=== PATIENT | female | born 1950 | race Caucasian/White ===

== ENCOUNTER → 2016-07-29 | Outpatient (CLI) | payer MEDICARE, BC ==
[2016-07-29 11:06] LABS: Blood Urea Nitrogen 16 mg/dL (7-17); Non-African American GFR(MDRD) >60 (>60 ml/min/1.73 sqM)
--- NOTE | 2016-07-29 17:23 | CT ---
CT urogram with and without contrast HISTORY: Intermittent gross hematuria x2 months Helical acquisition precontrast as well as postcontrast performed through the abdomen following 100 c c Omni 300 IV. No comparisons. Three-dimensional reconstructions performed on an alternate workstation. There is spinal curvature. Precontrast images show no ureteral calculus, there is no evidence of neph rolithiasis. Left-sided renal cyst is present measuring approximately 16 mm which measures water dens ity and likely represents a simple cyst. The kidneys are morphologically normal, there is no hydronep hrosis bilaterally. No evident filling defect within the ureters, ureters show normal course and ingris cammie. Renal collecting system show normal appearance. There are symmetric normal nephrograms bilateral ly. The lung bases are clear, there is no pleural or pericardial effusion. Small hiatal hernia is present . Visualized portions of the liver, gallbladder, spleen, adrenal glands, pancreas are unremarkable. N o evident bowel obstruction. The appendix is normal. Uterus and adnexal structures are within normal limits. There is extensive diverticular changes assoc iated with the sigmoid colon. Urinary bladder shows no filling defect. There is no pelvic adenopathy. Facet arthropathy changes are present in the lower lumbar spine. There is degenerative disc change. There is some questionable prominence of soft tissues at the level of the urethra. IMPRESSION: Consider correlation with pelvic exam, difficult to exclude prominence of soft tissue at the level of the urethra. Simple cyst left kidney is favored. Diverticulosis. Additional findings abo ve.
== END | disposition home or self-care (01) ==
LOC: RADCTMAIN 10:23
PROVIDERS: ATTEND Physician Assistant
DX: N28.1 Cyst of kidney, acquired (principal); K57.90 Diverticulosis of intestine, part unspecified, without perforation or abscess without bleeding; Z88.2 Allergy status to sulfonamides; Z88.1 Allergy status to other antibiotic agents
CPT/HCPCS: 82565; 84520; 74178; 36415; 74400; Q9967

== ENCOUNTER 2018-12-29 11:11 | Day surgery (SDC) | payer MEDICARE, BC ==
[2018-12-27 10:59] VITALS: BMI 24.4
[~2018-12-29 11:11] MED LIST: LACTATED RINGERS 1,000 ML IV SCH
[2018-12-29 12:17] VITALS: TEMP 98.7
[2018-12-29] MEDS ORDERED: LIDOCAINE 1% INJ 10MG/ML (20 ML MDV) ONE (12:44)
[2018-12-29] MEDS ORDERED: PROPOFOL 10 MG/ML 20 ML VIAL IV ONE (12:44)
--- NOTE | 2018-12-29 13:10 | P.PCN ---
Date of Procedure: 12/29/18 Procedure(s) Performed: BRIEF HISTORY: Patient is a 68-year-old pleasant male scheduled for an elective colonoscopy as a part of evaluation of rectal pain for the last 2 months duration. She denies any significant change in her bowel habits. She does complain of rectal pressure but no rectal bleeding. PROCEDURE PERFORMED: Colonoscopy. PREOPERATIVE DIAGNOSIS: Rectal pressure/rectal pain of 2 months duration. IV sedation per Anesthesia. PROCEDURE: After informed consent was obtained, the patient, was brought into the endoscopy unit. IV sedation was administered by Anesthesia under continuous monitoring. Digital rectal examination was normal. Initially the Olympus CF-160 flexible video colonoscope was then inserted in the rectum, gradually advanced into the cecum without any difficulty. Careful examination was performed as the scope was gradually being withdrawn. Ileocecal valve and the appendiceal orifice were visualized and appeared normal. Prep was excellent. Mucosa of the cecum, ascending colon, transverse colon, descending colon, sigmoid colon, and rectum appeared normal. Scattered sigmoidal diverticulosis seen. Retroflexion was performed in the rectum and no lesions were seen. The patient tolerated the procedure well. IMPRESSION: Normal-appearing colon from rectum to cecum no evidence of colitis or colorectal neoplasia. Normal-appearing rectum Scattered sigmoidal diverticulosis RECOMMENDATIONS: Findings of this examination were discussed with the patient as well as a family. She was advised to be a high-fiber diet and take fiber supplements a regular basis. She can have a repeat screening colonoscopy in 10 years.
[2018-12-29 13:11] VITALS: RESP 16
[2018-12-29 13:34] VITALS: BP 136/87; PULSE 62
== END 2018-12-29 14:03 | disposition home or self-care (01) ==
LOC: ORWHC2ENDO 11:11
PROVIDERS: ATTEND Internal Medicine Gastroenterology
DX: K57.30 Diverticulosis of large intestine without perforation or abscess without bleeding (principal); K21.9 Gastro-esophageal reflux disease without esophagitis; I10 Essential (primary) hypertension; Z79.82 Long term (current) use of aspirin; Z79.899 Other long term (current) drug therapy; Z88.1 Allergy status to other antibiotic agents; Z88.2 Allergy status to sulfonamides; Z91.048 Other nonmedicinal substance allergy status; Z91.09 Other allergy status, other than to drugs and biological substances
CPT/HCPCS: 45378; J2001; J2704